=== PATIENT | male | born 1970 | race Hispanic/Latino ===

== ENCOUNTER → 2019-02-17 | Day surgery (SDC) | payer BC ==
[~2019-02-17] MED LIST: BUPIVACAINE 0.25%/EPI 30ML SDV INJ ONE; CLINDAMYCIN PHOS 900MG/ 50ML 50 ML IV ONE; DEXAMETHASONE SOD PHOS INJ 4 MG/ML VIAL ONE; FENTANYL CITRATE/PF 100MCG/2 ML INJ ONE; GLYCOPYRROLATE INJ 1MG/ 5 ML SYR ONE; HYDROGEN PEROXIDE 120 ML BTL ONE; HYZAAR 100-251 EACH PO; KETOROLAC TROMETHAMINE 30 MG/ML VIAL ONE; LEVOFLOXACIN 500MG/D5W 100ML 100 ML IV ONE; LIDOCAINE HCL 2% LOCAL INJ 5 ML SDV VIAL INJ ONE; LOSARTAN; LOSARTAN-HCTZ1 EAC2 PO; MIDAZOLAM HCL 2 MG/2 ML VIAL ONE; NEOSTIGMINE 5 MG/5ML SYR ONE; ONDANSETRON HCL INJ 2MG/ML 2ML 2 MG/ML VIAL ONE; PROPOFOL IV EMULSION 10 MG/ML 20 ML VIAL ONE; ROCURONIUM BROMIDE 10 MG/ML 5ML VIAL ONE; SEVOFLURANE INHAL SOLN 250 ML PEN BTL ONE
--- OUTSIDE RECORDS SUMMARY | 2019-02-17 08:42 | XMS REPORT | Summary of Care ---
Author Author [facility] Organization [facility] Address Unknown Phone Unavailable Care Team Providers Care Ancillary Specialist Name Role Phone MandoArsh christiansontyree La PCP Encounter [facility](FIN) [id number] Date(s): 02/09/19 - 02/09/19 [facility] [address] [address]- Attending Physician: Sade Lowery MD Vital Signs No data available for this section Problem List Condition Effective Dates Status Health Status Informant Hypertension, Active essential(Confirmed) Obesity(Confirmed) Active Allergies, Adverse Reactions, Alerts Substance Reaction Severity Status trimethoprim containing Active compounds Medications No data available for this section Results No data available for this section Immunizations Given and Recorded Vaccine Date Status Refusal Reason influenza virus vaccine, inactivated 06/02/16 Given influenza virus vaccine, inactivated 06/04/15 Given Procedures Procedure Date Related Diagnosis Body Site Status Hemorrhoid operation 2013 Completed Social History Social History Type Response Alcohol Current, Type Beer. Frequency: 1-2 times per month. Smoking Status Never smoker; Exposure to Tobacco Smoke None; Cigarette Smoking Last 365 Days No; Reg Smoking Cessation Counseling No entered on: 10/20/18 Assessment and Plan No data available for this section
--- OUTSIDE RECORDS SUMMARY | 2019-02-17 08:42 | XMS REPORT | Summary of Care ---
Author Author [facility] Primary Care [facility] Organization [facility] Address Unknown Phone Unavailable Encounter JENNIFER Cole(AGUILA) [id number] Date(s): 10/20/18 - 10/20/18 [facility] [address] [place] [address], [address] [place] [address]- [phone] Discharge Disposition: Home or Self Care Attending Physician: Sade Lowery MD Vital Signs Most recent to 1 oldest [Reference Range]: Height 170.18 cm (10/20/18 7:39 AM) Temperature Oral 98.3 DegF [96.4-99.1 DegF] (10/20/18 7:39 AM) Blood Pressure 138/80 mmHg [90-140/60-90 mmHg] (10/20/18 7:39 AM) Respiratory Rate 16 BRMIN [14-20 BRMIN] (10/20/18 7:39 AM) Peripheral Pulse 61 bpm Rate [60-100 bpm] (10/20/18 7:39 AM) Weight 88.352 kg (10/20/18 7:39 AM) Body Mass Index 30.51 m2 (10/20/18 7:39 AM) Problem List Condition Effective Dates Status Health Status Informant Hypertension, Active essential(Confirmed) Obesity(Confirmed) Active Allergies, Adverse Reactions, Alerts Substance Reaction Severity Status trimethoprim containing Active compounds Medications hydrochlorothiazide-losartan 12.5 mg-100 mg oral tablet See Instructions, TAKE ONE TABLET BY MOUTH ONCE DAILY (TOME 1 TABLETA CADA ROSEMARY), # 90 tab, 3 Refill(s), Pharmacy: [id number] Start Date: 10/20/18 Status: Ordered Results No data available for this section [...]
--- OUTSIDE RECORDS SUMMARY | 2019-02-17 08:42 | XMS REPORT | Summary of Care ---
Author Author [facility] Primary Care [facility] Organization [facility] Care [facility] Address Unknown Phone Unavailable Encounter JENNIFER Cole(AGUILA) [id number] Date(s): 07/16/17 - 07/16/17 [facility] [address] [place] [address], [address] [place] [address]- [phone] Discharge Disposition: Home or Self Care Attending Physician: Sade Lowery MD Vital Signs Most recent to 1 oldest [Reference Range]: Height 170.18 cm (07/16/17 7:36 AM) Temperature Oral 97.8 DegF [96.4-99.1 DegF] (07/16/17 7:36 AM) Blood Pressure 150/99 mmHg [90-140/60-90 mmHg] *HI* (07/16/17 7:36 AM) Respiratory Rate 14 BRMIN [14-20 BRMIN] (07/16/17 7:36 AM) Peripheral Pulse 62 bpm Rate [60-100 bpm] (07/16/17 7:36 AM) Weight 97.5 kg (07/16/17 7:36 AM) Body Mass Index 33.67 m2 (07/16/17 7:36 AM) Problem List Condition Effective Dates Status Health Status Informant Hypertension, Active essential(Confirmed) Obesity(Confirmed) Active Allergies, Adverse Reactions, Alerts Substance Reaction Severity Status trimethoprim containing Active compounds Medications hydrochlorothiazide-losartan 12.5 mg-100 mg oral tablet See Instructions, TOME 1 TABLETA CADA ROSEMARY, # 90 tab, 1 Refill(s), Pharmacy: [id number] Start Date: 07/16/17 Status: Ordered Viagra 100 mg oral tablet See Instructions, PRN for erectile dysfunction, Take half tab PO Daily 1 hour before sexual activity, # 10 tab, 0 Refill(s), Pharmacy: [id number] Start Date: 07/16/17 Status: Ordered Results No data available for this section Immunizations Given and Recorded Vaccine Date Status Refusal Reason influenza virus vaccine, inactivated 06/02/16 Given influenza virus vaccine, inactivated 06/04/15 Given Procedures Procedure Date Related Diagnosis Body Site Hemorrhoid operation 2013 Social History Social History Type Response Alcohol Current, Type Beer. Frequency: 1-2 times per month. Smoking Status Never smoker; Exposure to Tobacco Smoke None; Cigarette Smoking Last 365 Days No; Reg Smoking Cessation Counseling No Assessment and Plan No data available for this section
--- OUTSIDE RECORDS SUMMARY | 2019-02-17 08:42 | XMS REPORT | Continuity of Care Document ---
Author Author [facility] Address Unknown Phone Unavailable Care Team Providers Care Health Data Administrator Name Role Phone [employer] Unavailable Unavailable Problems Problem Status Onset Date Classification Date Reported Comments Source Hypertension, essential Active Problem 02/11/2019 [facility] Obesity Active Problem 02/11/2019 [facility] Medications Medication Details Route Status Patient Instructions Ordering Provider Order Date Source Hydrochlorothiazide 12.5 MG / Losartan Potassium 100 MG Oral Tablet See Instructions, TAKE ONE TABLET BY MOUTH ONCE DAILY (TOME 1 TABLETA CADA ROSEMARY), # 90 tab, 3 Refill(s), Pharmacy: [id number] Active 10/20/2018 [facility] Hydrochlorothiazide 12.5 MG / Losartan Potassium 100 MG Oral Tablet See Instructions, TOME 1 TABLETA CADA ROSEMARY, # 90 tab, 1 Refill(s), Pharmacy: [id number] Active 07/16/2017 [facility] sildenafil 100 MG Oral Tablet [Viagra] See Instructions, PRN for erectile dysfunction, Take half tab PO Daily 1 hour before sexual activity, # 10 tab, 0 Refill(s), [id number] Active 07/16/2017 [facility] Allergies, Adverse Reactions, Alerts Substance Category Reaction Severity Reaction type Status Date Reported Comments Source trimethoprim containing compounds Assertion Drug allergy Active [facility] Immunizations Immunization Date Given Site Status Last Updated Comments Source influenza virus vaccine, inactivated 06/02/2016 Left Deltoid completed [facility] influenza virus vaccine, inactivated 06/04/2015 Right Deltoid completed [facility] Results No Data Provided for This Section Pathology Reports No Data Provided for This Section Diagnostic Reports No Data Provided for This Section Consultation Notes No Data Provided for This Section Discharge Summaries No Data Provided for This Section History and Physicals No Data Provided for This Section Vital Signs Vital Sign Value Date Comments Source Weight 88.352 10/20/2018 [facility] Temperature Oral (F) 98.3 F 10/20/2018 [facility] Respitory Rate 16 10/20/2018 [facility] Heart Rate 61 10/20/2018 [facility] Height 170.18 cm 10/20/2018 [facility] BMI Calculated 30.51 10/20/2018 [facility] Systolic (mm Hg) 138 10/20/2018 [facility] Diastolic (mm Hg) 80 10/20/2018 [facility] Height 170.18 cm 07/16/2017 [facility] Temperature Oral (F) 97.8 F 07/16/2017 [facility] Heart Rate 62 07/16/2017 [facility] Systolic (mm Hg) 150 07/16/2017 [facility] Diastolic (mm Hg) 99 07/16/2017 [facility] Respitory Rate 14 07/16/2017 [facility] Weight 97.5 07/16/2017 [facility] BMI Calculated 33.67 07/16/2017 [facility] Encounters Location Location Details Encounter Type Encounter Number Reason For Visit Attending Provider ADM Date DC Date Status Source Outpatient [id number] SADE LOWERY 12/03/2015 Active [facility] Outpatient [id number] SADE LOWERY 06/02/2016 Active [facility] Outpatient [id number] SADE LOWERY 12/01/2016 Active [facility] Outpatient [id number] SADE LOWERY 07/16/2017 [facility] Outpatient [id number] Sade Lowery 07/16/2017 07/17/2017 [facility] Outpatient [id number] SADE LOWERY 10/20/2018 [facility] Primary [facility] Outpatient [id number] Sade Lowery 10/20/2018 10/21/2018 [facility] Outpatient [id number] Sade Lowery 02/09/2019 [facility] Ambulatory Pre-Reg [id number] Sade Lowery 02/09/2019 02/09/2019 [facility] Procedures Procedure Code Date Perfomer Comments Source Hemorrhoid operation [id number] 08/16/2013 [facility] Assessment and Plan No Data Provided for This Section Plan of Care No Data Provided for This Section Social History Social History Date Source Social History TypeResponse Alcohol Current, Type Beer. Frequency: 1-2 times per month. Smoking Status Never smoker; Exposure to Tobacco Smoke None; Cigarette Smoking Last 365 Days No; Reg Smoking Cessation Counseling No entered on: 10/20/18 12/03/2015 [facility] Family History No Data Provided for This Section Advance Directives No Data Provided for This Section Functional Status No Data Provided for This Section
[2019-02-17 09:22] LABS: BASOPHILS % 0.1 % (0.0-1.0); EOSINOPHILS # (AUTO) 0.1 (0.0-0.4); EOSINOPHILS % 1.5 % (0.0-6.0); HEMATOCRIT 48.3 % (38.2-49.6); HEMOGLOBIN 16.1 g/dL (14.0-18.0); LYMPHOCYTES # (AUTO) 3.9 (1.0-3.2); LYMPHOCYTES % 49.6 % (18.0-39.1); MEAN CORPUSCULAR HEMOGLOBIN 30.6 pg (28-32); MEAN CORPUSCULAR HGB CONC 33.3 g/dL (31-35); MEAN CORPUSCULAR VOLUME 91.8 fL (81-99); MONOCYTES # (AUTO) 0.5 (0.2-0.8); MONOCYTES % 6.9 % (4.4-11.3); NEUTROPHILS # (AUTO) 3.3 (2.1-6.9); NEUTROPHILS % 41.6 % (38.7-80.0); PLATELET COUNT 187 x10e3/uL (140-360); RED BLOOD COUNT 5.26 x10e6/uL (4.3-5.7); RED CELL DISTRIBUTION WIDTH 12.7 % (11.7-14.4)
[2019-02-17 09:40] LABS: ANION GAP 15.1 mmol/L (8-16); BLOOD UREA NITROGEN 18 mg/dL (7-26); BUN/CREATININE RATIO 17 (6-25); CALCIUM 9.7 mg/dL (8.4-10.2); CARBON DIOXIDE 27 mmol/L (22-29); CHLORIDE 101 mmol/L (98-107); CREATININE, SERUM 1.08 mg/dL (0.72-1.25); EST GLOMERULAR FILTRATION RATE > 60 ML/MIN (60-); GLUCOSE 95 mg/dL (74-118); POTASSIUM 4.1 mmol/L (3.5-5.1); SODIUM 139 mmol/L (136-145)
--- NOTE | 2019-02-17 15:02 | Operative Report ---
DATE OF PROCEDURE: 02/17/2019 SURGEON: Avery Chao MD PREOPERATIVE DIAGNOSIS: Very large epidermal inclusion cyst of the right upper lateral back. PROCEDURE PERFORMED: Excision of very large cyst of the right upper lateral back. ANESTHESIA: General endotracheal. ESTIMATED BLOOD LOSS: Minimal. DRAIN: One 10 mm Ortega-Lagunas drain. INDICATIONS AND FINDINGS: The patient is a 48-year-old male, who had a 15-year history of a mass of the back, increasing in size, becoming painful to touch now. Because of the large size of the mass, which was about 15 x 10 cm at least, I requested the services of volunteer assistant in order to expedite the process and minimize anesthesia time. DESCRIPTION OF PROCEDURE: With the patient on the operative table in the supine position after administration of general endotracheal anesthesia, he was prepped and draped for excision of mass of the right upper lateral back. He was placed in the prone position. The mass was previously as stated, measured about at least 15 x 10 cm. It was located in the upper right back near the posterior axillary line. An incision was made across the mass transversely and then the dissection was carried out through the skin, subcutaneous tissue until the cyst was identified. The cyst was dissected free from the surrounding tissues. Dissection was tedious because the cyst was stuck to the tissues and there was reaction around them, at some point, the cyst was stuck to the skin in the upper part of the incision as well as to the fascia of the underlying muscle, which had to be even though our efforts to preserve it had to be excised with it. After we excised the entire cyst and its lining, we went ahead and copiously irrigated the wound because of the large resultant cavity. We placed a 10 mm flat Ortega-Lagunas drain. Brought it out laterally through the incision and secured it with 2-0 silk. Upper part of the incision where the cyst was stuck to the skin had to be excised along with the upper aspect of the incision in order to remove the cyst and closed the wound with minimal tension. The wound was closed using 0-Vicryl for the subcutaneous layer and the skin was closed using a combination of 3-0 silk and rhea. Sterile dressing was applied. The patient tolerated the procedure well, was taken to recovery room stable. MD ABBEY Crabtree/ZENON /[id number]
[2019-02-17 15:25] VITALS: BP 136/91
--- NOTE | 2019-03-17 09:50 | Operative Report ---
DATE OF PROCEDURE: 02/17/2019 SURGEON: Avery Chao MD ADDENDUM: UMBRELLA TIPPER: ARRON Arizmendi. Avery Chao MD PJR/MODL /[id number]
== END | disposition home or self-care (01) ==
LOC: OR 08:40
PROVIDERS: ATTEND Surgery
DX: R22.2 Localized swelling, mass and lump, trunk (principal); L72.0 Epidermal cyst; I10 Essential (primary) hypertension; Z88.0 Allergy status to penicillin; Z88.2 Allergy status to sulfonamides
CPT/HCPCS: 21931; 36415; 80048; 85025; 87071; 87205; 88304; 93005; J1100; J1885; J1956; J2001; J2250; J2405; J2704; J3490; J3010